=== PATIENT | male | born 1945 | race Caucasian/White ===

== ENCOUNTER → 2016-11-28 | Outpatient (CLI) | payer BC ==
[~2016-11-28] MED LIST: ACT15 PO; AMOX500C3 PO; AMR2 PO; ATOR10TA88 PO; CINN1CAP2 PO; CINNAMON PO; GLC500 PO; GLIM4TAB2 PO; LISI40TA PO; OMEG10007 PO; ONDA4TAB10 SL; OXYC-57 PO; RIVA1TAB4 PO; SITA50TA9 PO; TAMS0.4C38 PO
[2016-11-28 14:29] LABS: BASO % 0.5 %; BASO ABS # 0.04 K/uL (0-0.2); COMPLETE YES; HEMATOCRIT 42.6 % (42-52); IG% 0.3 %; LYMPH % 29.7 %; LYMPH ABS # 2.17 K/uL (1.2-3.4); MEAN CELL VOLUME 89.9 fL (80-100); MEAN CORPUSCULAR HEMOGLOBIN 30.6 pg (25-34); MEAN PLATELET VOLUME 11.3 fL (7.4-10.4); MONO % 8.1 %; NEUT % 57.4 %; PLATELET COUNT 211 K/uL (130-400); RED BLOOD COUNT 4.74 M/uL (4.7-6.1)
[2016-11-28 14:38] LABS: ALT/SGPT 32 U/L (12-78); BLOOD UREA NITROGEN 13 mg/dl (7-18); BUN/CREATININE RATIO 12.2 (10-20); CARBON DIOXIDE 27 mmol/L (21-32); CHLORIDE 105 mmol/L (98-107); GLUCOSE 190 mg/dl (70-99); POTASSIUM 4.2 mmol/L (3.5-5.1); SODIUM 141 mmol/L (136-145)
[2016-11-28 14:41] LABS: ALKALINE PHOSPHATASE 78 U/L (45-117); AST/SGOT 20 U/L (15-37)
[2016-11-28 14:59] LABS: ESTIMATED AVERAGE GLUCOSE 203 mg/dl; HA1C FLAG Normal (Normal)
== END ==
LOC: C.LABBC 10:23
PROVIDERS: ATTEND Internal Medicine Geriatric Medicine
DX: E11.9 Type 2 diabetes mellitus without complications (principal); I10 Essential (primary) hypertension; E78.5 Hyperlipidemia, unspecified; I48.91 Unspecified atrial fibrillation

== ENCOUNTER → 2017-03-16 | Outpatient (CLI) | payer BC ==
[2017-03-16 18:22] LABS: URINE PROTIEN/CREAT RATIO 0.1 (0-0.2); URINE TOTAL PROTEIN 7.8 mg/dl (0-11.9)
[2017-03-17 06:19] LABS: ESTIMATED AVERAGE GLUCOSE 151 mg/dl; HA1C FLAG Normal (Normal)
== END | disposition home or self-care (01) ==
LOC: C.LABBC 13:40
PROVIDERS: ATTEND Internal Medicine Geriatric Medicine
DX: I10 Essential (primary) hypertension (principal); E78.5 Hyperlipidemia, unspecified; I48.2 Chronic atrial fibrillation; E11.65 Type 2 diabetes mellitus with hyperglycemia

== ENCOUNTER → 2017-05-30 | Outpatient (CLI) | payer BC ==
[~2017-05-30] MED LIST changes: +SULF800T23 PO
--- NOTE | 2017-05-30 11:01 | DIAGNOSTIC IMAGING REPORT ---
CHEST 2 VIEWS ROUTINE CLINICAL HISTORY: J20.9 Acute bronchitis with bronchospasm bronchitis COMPARISON STUDY: 05/02/2016 FINDINGS: Mild stable cardiomegaly. Lungs are clear. Diaphragms smooth. IMPRESSION: Mild stable cardiomegaly. Otherwise negative study. No change in the prior exam. The above report was generated using voice recognition software. It may contain grammatical, syntax or spelling errors. Electronically signed by: Carson Sequeira M.D. 05/30/2017 10:59 AM Dictated Date/Time: 05/30/2017 10:58 AM
== END | disposition home or self-care (01) ==
LOC: C.RADBC 10:45
PROVIDERS: ATTEND Physician Assistant
DX: J20.9 Acute bronchitis, unspecified (principal)

== ENCOUNTER 2017-06-20 22:55 | Emergency (ER) | payer BC ==
[~2017-06-20] VITALS: Ht 180.3 cm; Wt 130.5 kg
[~2017-06-20 22:55] MED LIST changes: -AMOX500C3 PO; -CINN1CAP2 PO; -GLIM4TAB2 PO; -ONDA4TAB10 SL; -OXYC-57 PO; -SITA50TA9 PO; -SULF800T23 PO; -TAMS0.4C38 PO
[2017-06-20 23:08] VITALS: TEMP 36.7; Ht 180.3 cm; Wt 130.5 kg
[2017-06-20] MEDS ORDERED: GLIM4TAB2 PO (23:56)
[2017-06-20] MEDS ORDERED: SITA50TA9 PO (23:56)
[2017-06-20] MEDS ORDERED: AMOX500C3 PO (23:57)
[2017-06-20] MEDS ORDERED: CINN1CAP2 PO (23:58)
[2017-06-21] MEDS ORDERED: OPTIRAY 320 IV PRN (00:15)
[2017-06-21 00:37] LABS: URINE APPEARANCE CLEAR (CLEAR); URINE BILIRUBIN NEG (NEG); URINE COLOR YELLOW; URINE NITRITE NEG (NEG); URINE SPECIFIC GRAVITY 1.027 (1.000-1.030); UROBILINOGEN NEG (NEG); ZZUR CULT IF INDIC CLEAN CATCH NO
[2017-06-21 00:38] LABS: MANUAL MICROSCOPIC REQUIRED? NO; REVIEW REQ? NO
[2017-06-21 00:42] LABS: BASO % 0.2 %; BASO ABS # 0.02 K/uL (0-0.2); COMPLETE YES; EOS % 0.2 %; HEMATOCRIT 41.3 % (42-52); IG% 0.2 %; LYMPH % 6.3 %; LYMPH ABS # 0.77 K/uL (1.2-3.4); MEAN CELL VOLUME 90.2 fL (80-100); MEAN CORPUSCULAR HEMOGLOBIN 29.7 pg (25-34); MEAN CORPUSCULAR HGB CONC 32.9 g/dl (32-36); MEAN PLATELET VOLUME 9.6 fL (7.4-10.4); NEUT % 88.1 %; PLATELET COUNT 230 K/uL (130-400); RED BLOOD COUNT 4.58 M/uL (4.7-6.1); WHITE BLOOD COUNT 12.32 K/uL (4.8-10.8)
[2017-06-21 01:05] LABS: ALT/SGPT 24 U/L (12-78); AST/SGOT 15 U/L (15-37); BLOOD UREA NITROGEN 23 mg/dl (7-18); BUN/CREATININE RATIO 14.2 (10-20); CALCIUM 8.6 mg/dl (8.5-10.1); CARBON DIOXIDE 23 mmol/L (21-32); CHLORIDE 103 mmol/L (98-107); GLUCOSE 254 mg/dl (70-99); POTASSIUM 4.3 mmol/L (3.5-5.1); SODIUM 137 mmol/L (136-145)
[2017-06-21 01:09] LABS: ALB/GLOB RATIO 0.9 (0.9-2); ALKALINE PHOSPHATASE 73 U/L (45-117)
[2017-06-21] MEDS ORDERED: SODIUM CHLORIDE 0.9% 1000ML 1,000 ML IV STA (01:40)
[2017-06-21] MEDS ORDERED: MoRPHine SULFATE 10 MG/ML CARP/VIAL IV STA (02:19)
[2017-06-21] MEDS ORDERED: TAMSULOSIN HCL 0.4 MG CAP PO ONE (03:45)
[2017-06-21] MEDS ORDERED: PERCOCET HOME PACK PO ONE (03:45)
[2017-06-21] MEDS ORDERED: ONDANSETRON HOME PACK 4MG OD TAB PO ONE (03:45)
[2017-06-21] MEDS ORDERED: OXYC-57 PO (03:55)
[2017-06-21] MEDS ORDERED: ONDA4TAB10 SL (03:55)
[2017-06-21] MEDS ORDERED: TAMS0.4C38 PO (03:55)
--- NOTE | 2017-06-21 03:57 | EMERGENCY ROOM VISIT NOTE ---
History First contact with patient: 23:42 Chief Complaint: ABDOMINAL PAIN Stated Complaint: UPPER ABDOMINAL PAIN, NAUSEA, COLD/HOT Nursing Triage Summary: Patient c/o mid abdominal pain since about 1600 . Pain is dull then becomes sharp. C/o nausea. History of Present Illness The patient is a 71 year old male who presents to the Emergency Room with complaints of mid abdominal pain. The patient states that he developed a sudden onset of pain in the center of his abdomen approximately 6 hours ago. He states that the pain was intermittent for several hours and worsened this evening. He has associated nausea, but no vomiting. He states that he felt like he had the urge to have a bowel movement, but was not able to go. He denies any urinary symptoms. He denies any vomiting. He states that the pain has somewhat resolved at this time and reports a dull pain which she rates a 3/ 10. He denies any history of abdominal surgery. He denies any history of kidney stones. He denies changes in bowel movements, melena or hematochezia. The patient is a diabetic. Review of Systems A complete 10 point review of systems was reviewed with the patient with pertinent positives and negatives as per history of present illness. All else were negative. Social History Smoking Status: Never Smoker Current/Historical Medications Scheduled Atorvastatin (Lipitor), 10 MG PO QPM Cinnamon (Cinnamon), 1,000 MG PO DAILY Fish Oil (Homer-3), 1,000 MG PO DAILY Glimepiride (Glimepiride), 4 MG PO BID Lisinopril (Zestril), 40 MG PO QAM Ondasetron Odt (Zofran Odt), 4 MG SL Q6H Rivaroxaban (Xarelto), 20 MG PO DAILY Sitagliptin-Metformin Hcl (Janumet), 1 TAB PO BID Tamsulosin Hcl (Flomax), 0.4 MG PO DAILY Scheduled PRN Amoxicillin (Amoxil), 2,000 MG PO UD PRN for dental & podiatry appt's Oxycodone/Acetaminophen 5MG/325MG (Percocet 5MG/325MG), 1-2 TABS PO Q4H PRN for Pain Allergies Coded Allergies: No Known Allergies (Verified , 06/20/17) Physical Exam Vital Signs Date Time Temp Pulse Resp B/P (MAP) Pulse Ox O2 Delivery O2 Flow Rate FiO2 10/4/17 04:09 66 18 123/71 99 06/21/17 01:40 59 18 135/77 98 Room Air 06/20/17 23:08 36.7 79 16 148/84 97 Room Air Physical Exam VITALS: Vitals are noted on the nurse's note and reviewed by myself. Vital signs stable. GENERAL: This is a 71-year-old male, in no acute distress, nondiaphoretic, well- developed well-nourished. HEART: Regular rate and rhythm without murmurs gallops or rubs. LUNGS: Clear to auscultation bilaterally without wheezes, rales or rhonchi. ABDOMEN: Positive bowel sounds x 4. Soft, nontender to palpation. NEURO: Patient was alert and oriented to person place and time. Medical Decision & Procedures ER Provider Diagnostic Interpretation: CT ABDOMEN & PELVIS WITHOUT CONTRAST: There is a 3.8 mm stone in the distal left ureter 1 cm proximal to the left UVJ. There is a 2.5 mm stone in the proximal left ureter. The stones are associated with mild left hydroureteronephrosis and moderate perinephric stranding. Right kidney and collecting system are unremarkable. Normal appendix. No evidence of bowel obstruction. There is a small umbilical hernia containing a short loop of small bowel. Colonic diverticulosis without acute diverticulitis. Lumbar spondylosis. Radiologist: Jay Buckner MD Laboratory Results 06/21/17 00:20 Red Blood Count 4.58, Mean Corpuscular Volume 90.2, Mean Corpuscular Hemoglobin 29.7, Mean Corpuscular Hemoglobin Concent 32.9, Mean Platelet Volume 9.6, Neutrophils (%) (Auto) 88.1, Lymphocytes (%) (Auto) 6.3, Monocytes (%) (Auto) 5.0, Eosinophils (%) (Auto) 0.2, Basophils (%) (Auto) 0.2, Neutrophils # (Auto) 10.86, Lymphocytes # (Auto) 0.77, Monocytes # (Auto) 0.62, Eosinophils # (Auto) 0.02, Basophils # (Auto) 0.02 06/21/17 00:20 Test 06/20/17 00:20 06/21/17 00:20 Urine Color YELLOW Urine Appearance CLEAR (CLEAR) Urine pH 5.0 (4.5-7.5) Urine Specific [place] 1.027 (1.000-1.030) Urine Protein NEG (NEG) Urine Glucose (UA) 2+ (NEG) Urine Ketones 2+ (NEG) Urine Occult Blood NEG (NEG) Urine Nitrite NEG (NEG) Urine Bilirubin NEG (NEG) Urine Urobilinogen NEG (NEG) Urine Leukocyte Esterase NEG (NEG) White Blood Count 12.32 K/uL (4.8-10.8) Red Blood Count 4.58 M/uL (4.7-6.1) Hemoglobin 13.6 g/dL (14.0-18.0) Hematocrit 41.3 % (42-52) Mean Corpuscular Volume 90.2 fL (80-100) Mean Corpuscular Hemoglobin 29.7 pg (25-34) Mean Corpuscular Hemoglobin Concent 32.9 g/dl (32-36) Platelet Count 230 K/uL (130-400) Mean Platelet Volume 9.6 fL (7.4-10.4) Neutrophils (%) (Auto) 88.1 % Lymphocytes (%) (Auto) 6.3 % Monocytes (%) (Auto) 5.0 % Eosinophils (%) (Auto) 0.2 % Basophils (%) (Auto) 0.2 % Neutrophils # (Auto) 10.86 K/uL (1.4-6.5) Lymphocytes # (Auto) 0.77 K/uL (1.2-3.4) Monocytes # (Auto) 0.62 K/uL (0.11-0.59) Eosinophils # (Auto) 0.02 K/uL (0-0.5) Basophils # (Auto) 0.02 K/uL (0-0.2) RDW Standard Deviation 43.7 fL (36.4-46.3) RDW Coefficient of Variation 13.3 % (11.5-14.5) Immature Granulocyte % (Auto) 0.2 % Immature Granulocyte # (Auto) 0.03 K/uL (0.00-0.02) Anion Gap 11.0 mmol/L (3-11) Est Creatinine Clear Calc Drug Dose 60.0 ml/min Estimated GFR () 50.2 Estimated GFR (Non- 43.3 BUN/Creatinine Ratio 14.2 (10-20) Calcium Level 8.6 mg/dl (8.5-10.1) Total Bilirubin 0.6 mg/dl (0.2-1) Aspartate Amino Transf (AST/SGOT) 15 U/L (15-37) Alanine Aminotransferase (ALT/SGPT) 24 U/L (12-78) Alkaline Phosphatase 73 U/L (45-117) Troponin I < 0.015 ng/ml (0-0.045) Total Protein 7.3 gm/dl (6.4-8.2) Albumin 3.5 gm/dl (3.4-5.0) Globulin 3.8 gm/dl (2.5-4.0) Albumin/Globulin Ratio 0.9 (0.9-2) Lipase 163 U/L (73-393) Medications Administered Medications (Trade) Dose Ordered Sig/Roberta Route Start Time Stop Time Status Last Admin Dose Admin Sodium Chloride 1,000 ml @ 999 mls/hr Q1H1M STAT IV 06/21/17 01:40 06/21/17 02:40 DC 06/21/17 01:47 999 MLS/HR Morphine Sulfate (MoRPHine SULFATE INJ) 6 mg NOW STAT IV 06/21/17 02:19 06/21/17 02:20 DC 06/21/17 02:28 6 MG Oxycodone/ Acetaminophen (Percocet 5/ 325MG Home Pack) 1 homepack UD ONCE PO 06/21/17 03:45 06/21/17 03:46 DC 06/21/17 04:02 1 HOMEPACK Ondansetron HCl (ZOFRAN ODT 4MG Home Pack) 1 homepack UD ONCE PO 06/21/17 03:45 06/21/17 03:46 DC 06/21/17 04:02 1 HOMEPACK Tamsulosin HCl (Flomax Cap) 0.4 mg NOW ONCE PO 06/21/17 03:45 06/21/17 03:46 DC 06/21/17 04:03 0.4 MG ED Course The patient was evaluated as above. Labs were drawn and IV access was obtained. The patient was hydrated with 1 L normal saline solution. He initially declined analgesics. CT of the abdomen and pelvis was performed and read by statrad as above. Patient was having increased pain. He was given 6 mg morphine IV. Patient was reevaluated and much better. Findings were discussed. Home packs of Percocet and Zofran were ordered. He was given an initial dose of Flomax. Discharge instructions were reviewed with the patient. The patient verbalized understanding of my assessment and treatment plan and was discharged home in good condition. Medical Decision Differential diagnosis includes kidney stone, pyelonephritis, cholecystitis, pancreatitis, bowel obstruction, diverticulitis, ischemic colitis, among others. The patient is a 71-year-old male who presents today complaining of intermittent abdominal pain. Labs revealed a mild leukocytosis, possibly consistent with infection or stress. Glucose was elevated without evidence of DKA. Urinalysis was not suggestive of infection. Creatinine is mildly elevated from patient's baseline at 1.60. CT was performed and did show an obstructing ureteral calculus. Patient was comfortable after 1 dose of morphine and I feel it is reasonable to treat him as an outpatient. He was given home packs and prescriptions of Percocet and Zofran. He will be placed on Flomax. Patient was advised to follow-up with his primary care provider for recheck and to have his creatinine rechecked as well. He was agreeable to this. He was encouraged to return here for any worsening pain or new/ concerning symptoms. Based on the patient's presentation and work up, I feel the patient is stable for outpatient treatment. The patient was educated to return to the emergency department for any worsening of their current condition or new/concerning symptoms. He will follow up with his PCP. The patient was independently evaluated by Dr. Kang, ED attending physician, who agreed with my assessment and treatment plan. Blood pressure screening: Patient was found to have normal blood pressure on screening and does not require follow-up. Medication reconciliation: I attest that I have personally reviewed the patient 's current medication list. [place] Drug Monitoring Program Search Results: patient reviewed within database, no issues identified Impression Primary Impression: Left ureteral calculus Departure Information Dispostion Home / Self-Care Condition GOOD Prescriptions Tamsulosin Hcl (FLOMAX) 0.4 Mg Cap 0.4 MG PO DAILY for 14 Days, #14 CAP Prov: Jane Marie PA-C 06/21/17 Ondasetron Odt (ZOFRAN ODT) 4 Mg Tab 4 MG SL Q6H for Nausea, #15 TAB Prov: Jane Marie PA-C 06/21/17 Oxycodone/Acetaminophen 5MG/325MG (PERCOCET 5MG/325MG) Tab 1-2 TABS PO Q4H Y for Pain, #24 TAB For Initial Treatment Prov: Jane Marie .WILFRID 06/21/17 Referrals Dev Clay M.D. (PCP) Patient Instructions My [facility] Additional Instructions You have been treated in the Emergency Department today for a Kidney Stone ( Nephrolithiasis). You have received pain medicine in the emergency department which impairs your ability to operate a vehicle. It is illegal for you to drive after receiving these medicines. You have been prescribed Percocet to be used for pain control. This is a narcotic medication. You cannot drive or consume alcohol while on this medicine. This medicine should only be used for pain that cannot be controlled with [id number] pain medicines. You have been prescribed Zofran to be used for any nausea or vomiting. Take as prescribed. You have been prescribed Flomax 0.4 mg to be taken ONCE daily. This medicine has been prescribed as it can help relax the smooth muscles of the urinary tract increasing transit time of the kidney stone. For pain control, you can use the following [id number] medicines (if >12 yo): - Regular strength (325mg/tab) Tylenol (acetaminophen) 2 tabs every 4-6 hours as needed. Do not exceed 12 tablets in a 24 hour period. Avoid taking more than 4 grams (4000 mg) of Tylenol per day. This includes any other sources of acetaminophen you may take on a regular basis. - Regular strength (200 mg/tab) Advil (ibuprofen) 1-2 tabs every 4-6 hours as needed. Do not exceed a dose of 3200 mg per day. You have been provided a strainer and specimen collection cup. You should strain your urine to collect any passed stones. Your stones can be placed into the specimen cup and taken to your PCP for further evaluation. Follow-up with your primary care provider. Call tomorrow to schedule an appointment. Return to the Emergency Department if your symptoms persist despite the treatment plan outlined above or if you develop the following symptoms: intractable pain, fever, chills, or large amounts of blood in your urine.
[2017-06-21 04:09] VITALS: BP 123/71; PULSE 66; O2SAT 99
--- NOTE | 2017-06-21 07:45 | DIAGNOSTIC IMAGING REPORT ---
ABDOMEN AND PELVIS CT WITHOUT CONTRAST CT DOSE: 1149.95 mGycm HISTORY: mid abd pain, nausea TECHNIQUE: Multiaxial CT images of the abdomen and pelvis were performed without contrast. A dose lowering technique was utilized adhering to the principles of ALARA. COMPARISON STUDY: None. FINDINGS: The lung bases are clear. The unenhanced liver, gallbladder, spleen, adrenal glands, and pancreas are unremarkable. There are few punctate bilateral renal calculi. Left perinephric fat stranding with mild left hydronephrosis. There is a 3 mm stone at the left ureteropelvic junction best seen on image 253. Calcifications in the deep pelvis appear to represent phleboliths. Normal bladder. No bowel wall thickening or obstruction. Colonic diverticulosis. Normal appendix. No retroperitoneal lymphadenopathy. Small umbilical hernia containing a knuckle of small bowel. There are few small supraumbilical fat-containing hernias. IMPRESSION: 1. A 3 mm stone within the left ureteropelvic junction resulting in mild left hydronephrosis. 2. Bilateral nephrolithiasis. 3. Colonic diverticulosis. 4. Small ventral hernias as described above. Electronically signed by: Masood Flores M.D. 06/21/2017 7:43 AM Dictated Date/Time: 06/21/2017 7:33 AM
== END 2017-06-21 04:10 | disposition home or self-care (01) ==
LOC: C.EDB 22:57
DX: N13.2 Hydronephrosis with renal and ureteral calculous obstruction (principal); R10.10 Upper abdominal pain, unspecified; R11.0 Nausea; E11.9 Type 2 diabetes mellitus without complications; K57.30 Diverticulosis of large intestine without perforation or abscess without bleeding; M47.896 Other spondylosis, lumbar region; N13.39 Other hydronephrosis; K43.9 Ventral hernia without obstruction or gangrene

== ENCOUNTER 2017-07-02 10:12 | Emergency (ER) | payer BC ==
[~2017-07-02] VITALS: Ht 180.3 cm; Wt 133.1 kg
[~2017-07-02 10:12] MED LIST changes: -ACT15 PO; +AMOX500C3 PO; -AMR2 PO; +CINN1CAP2 PO; -CINNAMON PO; -GLC500 PO; +GLIM4TAB2 PO; +ONDA4TAB10 SL; +OXYC-57 PO; +SITA50TA9 PO; +TAMS0.4C38 PO
[2017-07-02 10:18] VITALS: TEMP 36.9; Ht 180.3 cm; Wt 133.1 kg
[2017-07-02] MEDS ORDERED: SODIUM CHLORIDE 0.9% 1000ML 1,000 ML IV STA (10:39)
[2017-07-02] MEDS ORDERED: ONDANSETRON INJ 2 MG/ML 2 ML VIAL IV STA (10:39)
[2017-07-02] MEDS ORDERED: MoRPHine SULFATE 4 MG/ML 1 ML CARP\\VIAL IV STA (10:39)
[2017-07-02 11:03] LABS: URINE APPEARANCE CLEAR (CLEAR); URINE BILIRUBIN NEG (NEG); URINE COLOR YELLOW; URINE EPITHELIAL CELL AUTO >30 /lpf (0-5); URINE NITRITE NEG (NEG); URINE SPECIFIC GRAVITY 1.026 (1.000-1.030); UROBILINOGEN NEG (NEG)
[2017-07-02 11:06] LABS: MANUAL MICROSCOPIC REQUIRED? NO; REVIEW REQ? NO
[2017-07-02 11:09] LABS: BASO % 0.2 %; BASO ABS # 0.02 K/uL (0-0.2); COMPLETE YES; EOS % 0.4 %; IG% 0.2 %; LYMPH % 7.8 %; LYMPH ABS # 0.96 K/uL (1.2-3.4); MEAN CELL VOLUME 89.4 fL (80-100); MEAN CORPUSCULAR HEMOGLOBIN 30.4 pg (25-34); MEAN CORPUSCULAR HGB CONC 33.9 g/dl (32-36); MEAN PLATELET VOLUME 9.6 fL (7.4-10.4); MONO % 7.3 %; NEUT % 84.1 %; PLATELET COUNT 249 K/uL (130-400); RED BLOOD COUNT 4.25 M/uL (4.7-6.1); WHITE BLOOD COUNT 12.28 K/uL (4.8-10.8)
[2017-07-02 11:18] LABS: CALCIUM 8.3 mg/dl (8.5-10.1); CREATININE 1.47 mg/dl (0.60-1.40); POTASSIUM 4.5 mmol/L (3.5-5.1)
[2017-07-02] MEDS ORDERED: SULF800T23 PO (12:21)
[2017-07-02 12:29] VITALS: BP 122/78; PULSE 78; O2SAT 99
--- NOTE | 2017-07-02 18:24 | EMERGENCY ROOM VISIT NOTE ---
ED Visit Note First contact with patient: 10:28 CHIEF COMPLAINT: Left Flank and abdominal pain today HISTORY OF PRESENT ILLNESS: This 71-year-old white male patient had sudden onset of pain in the left flank and left lower quadrant of the abdomen about 2 hours ago. There is nausea but no vomiting. The patient has not noticed any blood in urine or had any increased frequency or pain with urination recently. There is a positive history of kidney stones. He was just seen here 2 weeks ago and had a CT scan confirming nephrolithiasis and left ureterolithiasis. He states he passed that stone. He was on Flomax for a few days and his pain resolved. His new pain started today. It is steady and severe. No trauma. He denies any symptoms on the right. His accompanies him today. REVIEW OF SYSTEM: HEENT: No dizziness, visual problems, hearing loss, or tinnitus. There is no difficulty swallowing and no oral lesions are present. LYMPH: No adenopathy. PULMONARY: No cough, shortness of breath, sputum production or hemoptysis. CARDIOVASCULAR: No chest pain, palpitations, shortness of breath or peripheral edema. GASTROINTESTINAL: No diarrhea, constipation, nausea, vomiting, or abdominal pain. GENITOURINARY: No dysuria, frequency, urgency or nocturia. NEUROLOGIC: No weakness, muscle tenderness, epilepsy or history of neurological problems. MUSCULOSKELETAL: No history of joint tenderness/swelling. No history of arthritis or arthralgias. SKIN: No rashes or lesions. PSYCHIATRIC: No history of depression or mental illness. ENDOCRINE: No history of thyroid disorders, or abnormal hair growth. PMH: Supplemental sheet was reviewed and signed. Previous surgeries: Total knee arthroplasty 2 Medical history: Significant for history of kidney stones, diabetes, elevated cholesterol, and heart disease Current medications: Reviewed and filed in patient's chart Allergies: NKDA Family history: Noncontributory SOCIAL HISTORY: Patient lives at home with his . Non-smoker, no excessive alcohol use. Retired. PHYSICAL EXAM: Vital Signs: Afebrile. Reviewed and filed in patient's chart General: Well-developed, well-nourished, elderly white male, in obvious discomfort. No acute distress. He is laying on the bed. Alert and oriented. Skin: Warm and dry with good turgor. No rashes or lesions. No ecchymosis or erythema. The patient is not diaphoretic. No abrasions. HEART: Regular rate and rhythm without murmurs, ectopy, gallops, or rubs. Peripheral pulses are 2+ . LUNGS: Clear to auscultation and breath sounds equal. No wheezes, rales, or rhonchi. Good air movement. ABDOMEN: Soft, no hepato-splenomegaly, or masses. There is left CVA tenderness. He has left lower quadrant discomfort to palpation. No right-sided or periumbilical discomfort. NEUROLOGIC: Sensory and motor functions grossly intact. EYES: PERRL, EOMI, no discharge or injection. EMERGENCY DEPARTMENT COURSE: Urinalysis shows trace blood and leukocytes. CBC shows mild elevation in white count. This is similar to his previous presentation 2 weeks ago. PRP shows elevation in BUN and creatinine. This is also consistent with his previous visit 2 weeks ago. The patient was given morphine 4 mg IV for the pain. She was also given Zofran 4 mg IV. She was monitored. He had to urinate and unexpectedly voided a large stone. This was seen by nursing staff as well. Patient stated his pain entirely resolved. DIAGNOSIS: Left ureterolithiasis DISCHARGE INSTRUCTIONS AND TREATMENT: The patient was educated regarding today' s findings. Conservative care measures were discussed. High fluid intake, strain all urine passed over the next 2 days and bring any solid particles you find to your urologist or PCP for analysis. He may resume his Flomax if symptoms recur. Because of his UA findings, and because this is recurrent in a diabetic, he was placed on 3 days of Bactrim DS twice a day. Return to the ER if the pain becomes severe. Kidney stone handout was provided. Patient was seen in conjunction with Dr. Kang, who also evaluated the patient and concurred with today's diagnosis and treatment plan. Current/Historical Medications Scheduled Atorvastatin (Lipitor), 10 MG PO QPM Cinnamon (Cinnamon), 1,000 MG PO DAILY Fish Oil (Dawson-3), 1,000 MG PO DAILY Glimepiride (Glimepiride), 4 MG PO BID Lisinopril (Zestril), 40 MG PO QAM Rivaroxaban (Xarelto), 20 MG PO DAILY Sitagliptin-Metformin Hcl (Janumet), 1 TAB PO BID Sulfa/Trimethoprim (Bactrim Ds 800MG/160MG), 1 TAB PO BID Tamsulosin Hcl (Flomax), 0.4 MG PO DAILY Scheduled PRN Amoxicillin (Amoxil), 2,000 MG PO UD PRN for dental & podiatry appt's Oxycodone/Acetaminophen 5MG/325MG (Percocet 5MG/325MG), 1-2 TABS PO Q4H PRN for Pain Allergies Coded Allergies: No Known Allergies (Verified , 07/02/17) Vital Signs Date Time Temp Pulse Resp B/P (MAP) Pulse Ox O2 Delivery O2 Flow Rate FiO2 07/02/17 12:29 78 20 122/78 99 07/02/17 11:30 78 20 120/67 96 Room Air 07/02/17 10:18 36.9 86 16 119/71 95 Room Air Laboratory Results 07/02/17 10:40 Red Blood Count 4.25, Mean Corpuscular Volume 89.4, Mean Corpuscular Hemoglobin 30.4, Mean Corpuscular Hemoglobin Concent 33.9, Mean Platelet Volume 9.6, Neutrophils (%) (Auto) 84.1, Lymphocytes (%) (Auto) 7.8, Monocytes (%) (Auto) 7.3, Eosinophils (%) (Auto) 0.4, Basophils (%) (Auto) 0.2, Neutrophils # (Auto) 10.32, Lymphocytes # (Auto) 0.96, Monocytes # (Auto) 0.90, Eosinophils # (Auto) 0.05, Basophils # (Auto) 0.02 07/02/17 10:40 Test 07/02/17 10:30 07/02/17 10:40 Urine Color YELLOW Urine Appearance CLEAR (CLEAR) Urine pH 5.0 (4.5-7.5) Urine Specific [place] 1.026 (1.000-1.030) Urine Protein NEG (NEG) Urine Glucose (UA) TRACE (NEG) Urine Ketones NEG (NEG) Urine Occult Blood TRACE (NEG) Urine Nitrite NEG (NEG) Urine Bilirubin NEG (NEG) Urine Urobilinogen NEG (NEG) Urine Leukocyte Esterase MODERATE (NEG) Urine WBC (Auto) 10-30 /hpf (0-5) Urine RBC (Auto) 0-4 /hpf (0-4) Urine Hyaline Casts (Auto) 1-5 /lpf (0-5) Urine Epithelial Cells (Auto) >30 /lpf (0-5) Urine Bacteria (Auto) NEG (NEG) White Blood Count 12.28 K/uL (4.8-10.8) Red Blood Count 4.25 M/uL (4.7-6.1) Hemoglobin 12.9 g/dL (14.0-18.0) Hematocrit 38.0 % (42-52) Mean Corpuscular Volume 89.4 fL (80-100) Mean Corpuscular Hemoglobin 30.4 pg (25-34) Mean Corpuscular Hemoglobin Concent 33.9 g/dl (32-36) Platelet Count 249 K/uL (130-400) Mean Platelet Volume 9.6 fL (7.4-10.4) Neutrophils (%) (Auto) 84.1 % Lymphocytes (%) (Auto) 7.8 % Monocytes (%) (Auto) 7.3 % Eosinophils (%) (Auto) 0.4 % Basophils (%) (Auto) 0.2 % Neutrophils # (Auto) 10.32 K/uL (1.4-6.5) Lymphocytes # (Auto) 0.96 K/uL (1.2-3.4) Monocytes # (Auto) 0.90 K/uL (0.11-0.59) Eosinophils # (Auto) 0.05 K/uL (0-0.5) Basophils # (Auto) 0.02 K/uL (0-0.2) RDW Standard Deviation 42.8 fL (36.4-46.3) RDW Coefficient of Variation 13.1 % (11.5-14.5) Immature Granulocyte % (Auto) 0.2 % Immature Granulocyte # (Auto) 0.03 K/uL (0.00-0.02) Anion Gap 9.0 mmol/L (3-11) Est Creatinine Clear Calc Drug Dose 66.0 ml/min Estimated GFR () 55.6 Estimated GFR (Non- 48.0 BUN/Creatinine Ratio 14.0 (10-20) Calcium Level 8.3 mg/dl (8.5-10.1) Medications Administered Medications (Trade) Dose Ordered Sig/Roberta Route Start Time Stop Time Status Last Admin Dose Admin Sodium Chloride 1,000 ml @ 999 mls/hr Q1H1M STAT IV 07/02/17 10:39 07/02/17 11:39 DC 07/02/17 10:48 999 MLS/HR Morphine Sulfate (MoRPHine SULFATE INJ) 4 mg NOW STAT IV 07/02/17 10:39 07/02/17 10:42 DC 07/02/17 10:55 4 MG Ondansetron HCl (Zofran Inj) 4 mg NOW STAT IV 07/02/17 10:39 07/02/17 10:42 DC 07/02/17 10:55 4 MG Departure Information Impression Primary Impression: Left ureteral calculus Dispostion Home / Self-Care Condition GOOD Prescriptions Sulfa/Trimethoprim (Bactrim Ds 800MG/160MG) Tab 1 TAB PO BID, #6 TAB Prov: Rodrigo Boudreaux,P.A. 07/02/17 Forms HOME CARE DOCUMENTATION FORM, Kidney stone size in mm: 3 RENAL COLIC (KIDNEY STONES), TYLENOL USE, IMPORTANT VISIT INFORMATION Patient Instructions My [facility] Additional Instructions Maintain hydration Follow-up with your PCP or urology as needed start bactrim 1 pill 2 x day x 3 days You may start Flomax again if the symptoms recur Return to the ED for any other concerns
--- NOTE | 2017-07-04 05:10 | EMERGENCY ROOM VISIT NOTE ---
ED Visit Note First contact with patient: 10:28 Physician [employer] Supervision Note: I interviewed and examined the patient. Discussed with Rodrigo Boudreaux PA-C and agree with findings and plan as documented in the note. Any exceptions or clarifications are listed here: [None]. Pt feels well at this time, stating he passed a stone in the ED. His pain has resolved. Pt was advised of multiple bilateral punctate intra-renal stones that are non-obstructing currently. He will seek evaluation with urology. Pt was d/c to care of his . Documented By: Bonita Kang
== END 2017-07-02 12:34 | disposition home or self-care (01) ==
LOC: C.EDB 10:13 → C.EDC 12:34
DX: N20.1 Calculus of ureter (principal); N20.0 Calculus of kidney; E11.9 Type 2 diabetes mellitus without complications; E78.5 Hyperlipidemia, unspecified; Z96.659 Presence of unspecified artificial knee joint; Z87.442 Personal history of urinary calculi

== ENCOUNTER → 2017-07-26 | Outpatient (CLI) | payer BC ==
[~2017-07-26] MED LIST changes: +ATOR10TA82 PO; -ATOR10TA88 PO; -ONDA4TAB10 SL; +SULF800T23 PO; -TAMS0.4C38 PO
--- NOTE | 2017-07-26 09:42 | DIAGNOSTIC IMAGING REPORT ---
KUB CLINICAL HISTORY: 71 years-old Male presenting with V76.44 screening for malignant neoplasm of prostate, Z12.5, history of renal stones. TECHNIQUE: Single supine view of the abdomen was obtained. COMPARISON: CT from 06/21/2017. FINDINGS: Normal bowel gas pattern. No evidence of free intraperitoneal gas, pneumatosis, or portal venous gas. No calcifications to suggest nephrolithiasis. Previous seen noted calcification in the left kidney on CT is not radiographically apparent. No calcifications along the courses of the ureters. Lung bases clear. Degenerative changes of the spine with scoliotic curvature. IMPRESSION: 1. No radiographically apparent renal calculi. Electronically signed by: Lamonte Barnett M.D. 07/26/2017 9:41 AM Dictated Date/Time: 07/26/2017 9:36 AM
[2017-07-26 11:21] LABS: BLOOD UREA NITROGEN 20 mg/dl (7-18); BUN/CREATININE RATIO 17.1 (10-20); CREATININE 1.16 mg/dl (0.60-1.40)
[2017-07-26 11:25] LABS: PROSTATE SPECIFIC ANTIGEN 0.934 ng/ml (0.000-4.000)
== END | disposition home or self-care (01) ==
LOC: C.RADBC 09:13
PROVIDERS: ATTEND Urology
DX: N20.0 Calculus of kidney (principal); N20.1 Calculus of ureter; Z12.5 Encounter for screening for malignant neoplasm of prostate

== ENCOUNTER → 2017-08-28 | Outpatient (CLI) | payer BC ==
[2017-08-28 17:06] LABS: BASO % 0.4 %; BASO ABS # 0.03 K/uL (0-0.2); COMPLETE YES; HEMATOCRIT 41.9 % (42-52); IG% 0.1 %; LYMPH % 26.5 %; MEAN CELL VOLUME 91.1 fL (80-100); MEAN CORPUSCULAR HEMOGLOBIN 31.1 pg (25-34); MEAN CORPUSCULAR HGB CONC 34.1 g/dl (32-36); MEAN PLATELET VOLUME 11.1 fL (7.4-10.4); MONO % 6.4 %; NEUT % 62.6 %; PLATELET COUNT 219 K/uL (130-400); WHITE BLOOD COUNT 7.54 K/uL (4.8-10.8)
[2017-08-28 17:30] LABS: ALT/SGPT 25 U/L (12-78); AST/SGOT 18 U/L (15-37); BLOOD UREA NITROGEN 14 mg/dl (7-18); BUN/CREATININE RATIO 13.6 (10-20); CARBON DIOXIDE 29 mmol/L (21-32); CHLORIDE 105 mmol/L (98-107); CREATININE 1.01 mg/dl (0.60-1.40); GLUCOSE 130 mg/dl (70-99); POTASSIUM 4.3 mmol/L (3.5-5.1); SODIUM 138 mmol/L (136-145)
[2017-08-28 17:42] LABS: ALB/GLOB RATIO 1.1 (0.9-2); ALKALINE PHOSPHATASE 65 U/L (45-117); CHOLESTEROL 109 mg/dl (0-200); CHOLESTEROL/HDL RATIO 2.9; HDL CHOLESTEROL 38 mg/dl; LDL CHOLESTEROL CALCULATED 43 mg/dl; PROSTATE SPECIFIC ANTIGEN 0.846 ng/ml (0.000-4.000); TRIGLYCERIDES 139 mg/dl (0-150); VERY LOW DENSITY LIPOPROT CALC 28 mg/dl
[2017-08-29 07:14] LABS: ESTIMATED AVERAGE GLUCOSE 169 mg/dl; HA1C FLAG Normal (Normal)
== END | disposition home or self-care (01) ==
LOC: C.LABBC 13:49
PROVIDERS: ATTEND Internal Medicine Geriatric Medicine
DX: I10 Essential (primary) hypertension (principal); M19.90 Unspecified osteoarthritis, unspecified site; E78.5 Hyperlipidemia, unspecified; D64.9 Anemia, unspecified; I48.2 Chronic atrial fibrillation; Z00.00 Encounter for general adult medical examination without abnormal findings